=== PATIENT | male | born 1970 | race American Indian/Alaskan Native ===

== ENCOUNTER 2017-09-24 10:49 | Emergency (ER) | payer OTHER ==
[2017-09-24 10:56] VITALS: BP 132/68
[2017-09-24] MEDS ORDERED: MOTRIN PO ONE (14:03)
--- NOTE | 2017-09-24 14:03 | Emergency Department Report ---
Blank Doc - Documentation Documentation: Patient is a 47-year-old [place] male who is presenting with neck pain. Patient states he has some pain in the midline lower C-spine area states it hurts when he turns his head from side to side. Patient denies any trauma.
--- NOTE | 2017-09-24 15:23 | XRay Report ---
CERVICAL SPINE, 3 views: History: Neck pain. Findings: The vertebral bodies, disk spaces, posterior elements and prevertebral soft tissues are unremarkable. The dens is intact. No acute fracture or malalignment is identified. Impression: Cervical spine within normal limits.
--- NOTE | 2017-09-24 15:39 | Emergency Department Report ---
ED Neck Pain HPI Chief Complaint: Back Pain/Injury Stated Complaint: NECK/BACK PAIN Time Seen by Provider: 09/24/17 14:02 Duration: 1 week Neck Pain Location: Posterior Neck, Trapezius (on the right) Severity: moderate Mechanism: Unsure Symptoms: Yes Pain with Movement, Yes Radiation to Right Upper Ext, No Radiation to Left Upper Ext, No Numbness, No Weakness, No Previous History Other History: This is a 47 y.o. male presents with neck and upper back pain for 1 week. Patient denies recent fall or injury. Pain is 6/10 on pain scale and worse with movement. He is taking aspirin 81 mg for pain. Patient states he thought original it was ralated to chest so he decided to take aspirin but the pain never improved. Denies ches pain, SOB, numbness/tingling, fever, or rhinorrhea. ED Review of Systems ROS: Stated complaint: NECK/BACK PAIN Other details as noted in HPI Constitutional: denies: chills, fever Respiratory: denies: cough, shortness of breath, wheezing Cardiovascular: denies: chest pain, palpitations Gastrointestinal: denies: abdominal pain, nausea, diarrhea Musculoskeletal: back pain, arthralgia (neck and upper back pain) Skin: denies: rash, lesions Neurological: denies: headache, weakness, paresthesias ED Past Medical Hx - Past Medical History Previous Medical History?: No - Surgical History Past Surgical History?: No - Social History Smoking Status: Never Smoker Substance Use Type: None - Medications Home Medications: Home Medications Medication Instructions Recorded Confirmed Last Taken Type Cyclobenzaprine HCl [Flexeril 5 MG 5 mg PO TID PRN #20 tab 09/24/17 Unknown Rx TAB] Ibuprofen 800 mg PO Q6H PRN #20 tablet 09/24/17 Unknown Rx Neck Pain Exam - Exam General: Vital signs noted. No distress. Alert and acting appropriately. HEENT: No Facial Pain, No Scalp Tenderness, No Contusion, No Abrasion, No Laceration Neck Pain: Yes Midline Tenderness, Yes Right Trapezius Tenderness, Yes Pain with Rotation Right, Yes Pain with Rotation Left, Yes Pain with Flexion, Yes pain with R Lateral Flexion, No Right Paraspinal Tenderness, No Left Paraspinal Tenderness, No Left Trapezius Tenderness, No Pain with Extension, No Pain with L Lateral Flexion Chest: Yes Clear Lung Sounds, No Pain with Respirations Heart: Yes Regular, No Murmur Back: No Thoracic Tenderness, No Lumbar Tenderness Neuro: Yes Normal Reflexes, No Numbness, No Weakness, No Radicular Deficits ED Course Vital Signs 09/24/17 09/24/17 10:53 14:26 Temperature 97.8 F Pulse Rate 78 Respiratory 16 16 Rate Blood Pressure 132/68 O2 Sat by Pulse 97 Oximetry ED Medical Decision Making - Radiology Data Radiology results: image reviewed Normal exam of cervical spine xray. - Medical Decision Making This is a 47 y.o. male presents with neck and upper back pain for 1 week. Unknown cause. Denies LOC, chest pain, abdominal pain, SOB, and numbness and tingling. Patient was examined by me. Physical findings susceptible of muscle strain of right trapezius muscle. Xray of cervical spine obtained and normal scan. Patient informed of results. Plan discussed with patient to discharge home and treat outpatient. He agrees with ER plan. Patient discharged home in stable condition. Start ibuprofen and cyclobenzaprine. Follow up with PCP. Critical care attestation.: If time is entered above; I have spent that time in minutes in the direct care of this critically ill patient, excluding procedure time. ED Disposition Clinical Impression: Strain of cervical portion of trapezius muscle Strain of right trapezius muscle Qualifiers: Encounter type: initial encounter Qualified Code(s): S46.811A - Strain of other muscles, fascia and tendons at shoulder and upper arm level, right arm, initial encounter Disposition: TO HOME OR SELFCARE Is pt being admited?: No Does the pt Need Aspirin: No Condition: Stable Instructions: Muscle Strain (ED), Neck Exercises (GEN), Cervical Spine Strain ( ED) Additional Instructions: Rest Use ice or heat on affected area for 20 minutes and off for 2 hours. Take pain medication as needed for pain. Don't drive or operate heavy machinery while taking muscle relaxers because they may cause drowsiness. Follow up with Primary Care Provider. Prescriptions: Cyclobenzaprine HCl [Flexeril 5 MG TAB] 5 mg PO TID PRN #20 tab PRN Reason: Muscle Spasm Ibuprofen 800 mg PO Q6H PRN #20 tablet PRN Reason: Pain Referrals: [facility] [Outside] - 3-5 Days [facility] [Outside] - 3-5 Days [facility] [Outside] - 3-5 Days Time of Disposition: 15:44 Print Language: PRYDEINIG
== END 2017-09-24 15:53 | disposition home or self-care (01) ==
LOC: ED 10:49
DX: S46.811A Strain of other muscles, fascia and tendons at shoulder and upper arm level, right arm, initial encounter (principal); X58.XXXA Exposure to other specified factors, initial encounter; Y93.89 Activity, other specified; Y92.89 Other specified places as the place of occurrence of the external cause; Y99.8 Other external cause status
CPT/HCPCS: 72040; 99283